=== PATIENT | female | born 1975 | race Caucasian/White ===

== ENCOUNTER 2024-10-08 21:32 | Day surgery (SDC) | payer BC ==
[2024-10-08 21:47] VITALS: O2SAT 99
--- NOTE | 2024-10-08 21:57 | ERPHSYRPT ---
- History of Present Illness Source: patient Exam Limitations: no limitations Patient Subjective Stated Complaint: c/o food obstruction Triage Nursing Assessment: patient rbought to ED with c/o food obstruction in esophagus. States that she ate some steak arounf 1630 and cannot get it to come up or down. Patient states it has happened before but not this bad. Patient tried to drink some coke earlier but it didn't subside. Patient rates pain 3/10, states she has nausea and vomiting but the food won't come up. hypertensive, skin w/n/d, gait stead, afebrile. Physician History: Patient was eating a steak at around 430 or 5 PM. It got stuck. This has happened once before but it passed after a few hours. She waited about 4-1/2 or 5 hours decided to come in. She is unable to swallow. She has some pain and she points to her midsternal area. She says it is tight and feels like something stuck in there. She is having difficulty clearing her secretions. Timing/Duration: today Severity: moderate Allergies/Adverse Reactions: acetaminophen [From Darvocet-N] Adverse Reaction (Verified 10/08/24 21:37) Itching Opioids - Morphine Analogues Adverse Reaction (Verified 10/08/24 21:37) Itching propoxyphene [From Darvocet-N] Adverse Reaction (Verified 10/08/24 21:37) Itching Home Medications: No Reportable Medications [No Reported Medications] 03/20/23 [History] Hx Tetanus, Diphtheria Vaccination/Date Given: Yes Hx Influenza Vaccination/Date Given: No Hx Pneumococcal Vaccination/Date Given: No Travel Risk - International Travel Have you traveled outside of the country in past 3 weeks: No - Emerging Infectious Disease Are you exhibiting symptoms associated with any current EIDs: No - Review of Systems Constitutional: No Symptoms Eyes: No Symptoms Ears, Nose, & Throat: No Symptoms Cardiac: No Symptoms Abdominal/Gastrointestinal: No Symptoms Skin: No Symptoms Neurological: No Symptoms - Past Medical History Pertinent Past Medical History: Yes Other Medical History: kidney stones, gallstones - Past Surgical History Past Surgical History: Yes Neuro Surgical History: No Pertinent History Cardiac: No Pertinent History Respiratory: No Pertinent History Gastrointestinal: Cholecystectomy Genitourinary: No Pertinent History Musculoskeletal: No Pertinent History Female Surgical History: Tubal Ligation Other Surgical History: ablation Significant Family History: no pertinent family hx - Female History Hx Last Menstrual Period: ablation around 18 years ago Hx Now: No - Social History Smoking Status: Never smoker Exposure to second hand smoke: No Drug Use: none - Social Determinants of Health Will the patient participate in the screening: Declined to provide - Nursing Vital Signs Nursing Vital Signs: Initial Vital Signs Temperature 98.7 F 10/08/24 21:38 Pulse Rate 96 H 10/08/24 21:38 Respiratory Rate 22 10/08/24 21:38 Blood Pressure 170/107 10/08/24 21:38 O2 Sat by Pulse Oximetry 99 10/08/24 21:38 Pain Scale Pain Intensity 3 - Physical Exam General Appearance: no apparent distress Eye Exam: PERRL/EOMI Ears, Nose, Throat Exam: normal ENT inspection Neck Exam: normal inspection Respiratory Exam: normal breath sounds Cardiovascular Exam: regular rate/rhythm Gastrointestinal/Abdomen Exam: soft, normal bowel sounds SpO2: 99 - Course Nursing assessment & vital signs reviewed: Yes Ordered Tests: Medication Summary Discontinued Medications Generic Name Dose Route Start Last Admin Trade Name Martha PRN Reason Stop Dose Admin Glucagon 1 mg 10/08/24 21:55 10/08/24 22:09 Glucagon 1 Mg/Vial Vial IM 10/08/24 21:56 1 mg STAT ONE Administration Glucagon Confirm 10/08/24 22:01 Glucagon 1 Mg/Vial Vial Administered 10/08/24 22:02 Dose 1 mg .ROUTE .STK-MED ONE Lorazepam 2 mg 10/08/24 21:55 10/08/24 22:03 Lorazepam 2 Mg/1 Ml 2 Mg Vial IM 10/08/24 21:56 2 mg STAT ONE Administration Lorazepam Confirm 10/08/24 22:00 Lorazepam 2 Mg/1 Ml 2 Mg Vial Administered 10/08/24 22:01 Dose 2 mg .ROUTE .STK-MED ONE Sterile Water Confirm 10/08/24 22:01 Water For Injection,Sterile 10 Ml Vial Administered 10/08/24 22:02 Dose 10 ml IJ .STK-MED ONE - Progress Progress: unchanged Progress Note: I spoke with Dr. Rj Zurita. He agreed to come in and remove the bolus. 10/08/24 22:15 - Departure Departure Disposition: Home Clinical Impression: Esophageal foreign body Condition: Stable Critical Care Time: No Referrals: FRITCH,SHANTELLE, CIGARETTE TIPPER [Primary Care Provider] - Follow up/PCP as directed
[2024-10-08] MEDS ORDERED: Ativan 2 MG/1 ML VIAL ONE (22:00)
[2024-10-08] MEDS ORDERED: GlucaGen 1 MG ONE (22:01)
[2024-10-08] MEDS ORDERED: Sterile H2O 10 ml IJ ONE (22:01)
[2024-10-08] MEDS: Ativan 2 MG/1 ML VIAL IM ONE (22:03)
[2024-10-08] MEDS: GlucaGen 1 MG IM ONE (22:09)
[2024-10-08 22:28] VITALS: TEMP 99.3
[2024-10-08 23:03] VITALS: BP 146/82; PULSE 84; RESP 19
--- NOTE | 2024-10-08 23:03 | PCM.HP ---
History of Present Illness - Chief Complaint History of Present Illness: 49yo has had multiple prior episodes that always resolved on its own. eating steak. cannot get it to go down. "- History of Present Illness Source: patient Exam Limitations: no limitations Patient Subjective Stated Complaint: c/o food obstruction Triage Nursing Assessment: patient rbought to ED with c/o food obstruction in esophagus. States that she ate some steak arounf 1630 and cannot get it to come up or down. Patient states it has happened before but not this bad. Patient tried to drink some coke earlier but it didn't subside. Patient rates pain /, states she has nausea and vomiting but the food won't come up. hypertensive, skin w/n/d, gait stead, afebrile. Physician History: Patient was eating a steak at around 430 or 5 PM. It got stuck. This has happened once before but it passed after a few hours. She waited about 4-1/2 or 5 hours decided to come in. She is unable to swallow. She has some pain and she points to her midsternal area. She says it is tight and feels like something stuck in there. She is having difficulty clearing her secretions. Timing/Duration: today Severity: moderate Allergies/Adverse Reactions: acetaminophen [From Darvocet-N] Adverse Reaction (Verified 10/08/24 21:37) Itching Opioids - Morphine Analogues Adverse Reaction (Verified 10/08/24 21:37) Itching propoxyphene [From Darvocet-N] Adverse Reaction (Verified 10/08/24 21:37) Itching Home Medications: No Reportable Medications [No Reported Medications] 03/20/23 [History] Hx Tetanus, Diphtheria Vaccination/Date Given: Yes Hx Influenza Vaccination/Date Given: No Hx Pneumococcal Vaccination/Date Given: No Travel Risk - International Travel Have you traveled outside of the country in past 3 weeks: No - Emerging Infectious Disease Are you exhibiting symptoms associated with any current EIDs: No - Review of Systems Constitutional: No Symptoms Eyes: No Symptoms Ears, Nose, & Throat: No Symptoms Cardiac: No Symptoms Abdominal/Gastrointestinal: No Symptoms Skin: No Symptoms Neurological: No Symptoms - Past Medical History Pertinent Past Medical History: Yes Other Medical History: kidney stones, gallstones - Past Surgical History Past Surgical History: Yes Neuro Surgical History: No Pertinent History Cardiac: No Pertinent History Respiratory: No Pertinent History Gastrointestinal: Cholecystectomy Genitourinary: No Pertinent History Musculoskeletal: No Pertinent History Female Surgical History: Tubal Ligation Other Surgical History: ablation Significant Family History: no pertinent family hx - Female History Hx Last Menstrual Period: ablation around 18 years ago Hx Now: No - Social History Smoking Status: Never smoker Exposure to second hand smoke: No Drug Use: none - Social Determinants of Health Will the patient participate in the screening: Declined to provide" Medications & Allergies Home Medications: Home Medication List No Reportable Medications [No Reported Medications] 03/20/23 [History Confirmed 10/08/24] Allergies/Adverse Reactions: Allergies Allergy/AdvReac Type Severity Reaction Status Date / Time acetaminophen AdvReac Itching Verified 10/08/24 21:37 [From Darvocet-N] Opioids - Morphine Analogues AdvReac Itching Verified 10/08/24 21:37 propoxyphene AdvReac Itching Verified 10/08/24 21:37 [From Darvocet-N] - Past Medical History Past Medical History: Yes Comment: kidney stones, gallstones - Female History Hx Last Menstrual Period: ablation around 18 years ago Are you now?: No - Past Surgical History Past Surgical History: Yes Neuro Surgical History: No Pertinent History Cardiac History: No Pertinent History Respiratory Surgery: No Pertinent History GI Surgical History: Cholecystectomy Genitourinary Surgical Hx: No Pertinent History Musculskeletal Surgical Hx: No Pertinent History Female Surgical History: Tubal Ligation Other Surgical History: ablation Significant Family History: no pertinent family hx - Social History Smoking Status: Never smoker Exposure to second hand smoke: No Alcohol: Rarely Drug Use: none - Social Determinants of Health Will the patient participate in the screening: Declined to provide - Physical Exam Vital Signs: Vital Signs - 24 hr Temp Pulse Resp BP BP Pulse Ox 10/08/24 22:39 99 10/08/24 22:19 99.3 F 78 16 141/98 99 10/08/24 22:01 85 20 141/98 99 10/08/24 21:38 98.7 F 96 H 22 170/107 170/107 78 L Additional Findings: 10/08/24 23:02 nad no scleral icterus neck symmetric nonlabored resps rrr nd, soft, nttp no edema Assessment/Plan (1) Esophageal foreign body Current Visit: Yes Status: Acute Assessment & Plan: esophagel food bolus obstruction not able to handle secretions. -egd with removal. Code(s): T18.108A - UNSP FOREIGN BODY IN ESOPHAGUS CAUSING OTH INJURY, INIT
[2024-10-08] MEDS ORDERED: SUBLIMAZE 100 MCG/2 ML ONE (23:11)
[2024-10-08] MEDS ORDERED: Zofran 4 MG/2 ML VIAL ONE (23:12)
[2024-10-08] MEDS ORDERED: propofoL IV ONE (23:12)
[2024-10-08] MEDS ORDERED: Quelicin Fliptop 200 MG/10 ML ONE (23:12)
[2024-10-08] MEDS ORDERED: Xylocaine-Mpf 2% 5 Ml Vial ONE (23:12)
[2024-10-08] MEDS ORDERED: Lactated Ringers 1,000 ML IV ONE (23:24)
[2024-10-08] MEDS ORDERED: BREVIBLOC 100 MG/10 ML IV ONE (23:31)
--- NOTE | 2024-10-11 08:02 | OP ---
SURGERY DATE/TIME: 10/08/2024 [id number] PREOPERATIVE DIAGNOSIS: Esophageal food bolus obstruction. POSTOPERATIVE DIAGNOSIS: Esophageal food bolus obstruction. PROCEDURE PERFORMED: Esophagogastroduodenoscopy with removal of esophageal food bolus. SURGEON: Chuck Zurita MD ANESTHESIA: General. ESTIMATED BLOOD LOSS: Minimal. PATIENT CONDITION: Stable. COMPLICATIONS: None. SPECIMENS: None. INDICATIONS: The patient is a 49-year-old female that has had previous food bolus that never required an EGD, it always passed on its own. She is not taking any PPI. She has had a colonoscopy before. Discussion was had with the patient. She elected to proceed. FINDINGS: A piece of meat at the distal esophagus pushed through easily. Moderate esophagitis just at that area in the distal esophagus. DESCRIPTION OF PROCEDURE: Patient brought to the operating room, routinely positioned and prepared. General endotracheal anesthesia by Anesthesia. The time-out performed. Gastroscope was then inserted, advanced to the distal esophagus where there was a meat food bolus encountered, which was easily pushed through without any significant resistance. The stomach was then suctioned out. There were some just fundic gland-appearing polyps in the stomach and there was a distal esophagitis just at the area where the meat bolus was. No significant gastritis. Duodenum was normal. The stomach was suctioned out. The scope was withdrawn. RECOMMENDATIONS: Daily PPI. Follow up in the office in 2 to 4 weeks. Could consider repeat EGD, possible dilation.
== END 2024-10-09 00:20 | disposition home or self-care (01) ==
LOC: SDC 21:32 → ED 10-09 00:20 → SDC 10-09 00:20
PROVIDERS: ATTEND Surgery
DX: T18.128A Food in esophagus causing other injury, initial encounter (principal)
CPT/HCPCS: 96372; 99140; 99283; 99284; J0330; J1610; J2060; J2405; J2704; J3010

== ENCOUNTER 2025-04-28 20:23 | Emergency (ER) | payer BC ==
[2025-04-28 20:37] VITALS: TEMP 97.4
[2025-04-28] MEDS ORDERED: GlucaGen 1 MG ONE (20:47)
[2025-04-28] MEDS ORDERED: VERSED 5 MG/5 ML ONE (20:47)
--- NOTE | 2025-04-28 20:48 | ERPHSYRPT ---
- History of Present Illness Patient Subjective Stated Complaint: pt states that she has roast stuck in her throat Triage Nursing Assessment: pt ambulated into the er; pt is axo x4; c/o foreign body; pt denies pain; c/o N/V; clear lung sounds in all lobes; no upper airway obstruction present; no respiratory distress present, pt is speaking in full sentences; skin PDW; hypertensive Physician History: Food bolus in esophagus, patient apparently had steak for dinner and feels like food is caught in her esophagus, this happened previously in September of this year and she required to have endoscopy to have the fluid removed, she states that she has had several episodes in the past, She has only had the 1 endoscopy and when they remove the food bolus they stated there was no scarring at that time and the food bolus was pushed through without difficulty Timing/Duration: hour(s) (2) Severity: moderate Associated Symptoms: vomiting Allergies/Adverse Reactions: acetaminophen [From Darvocet-N] Adverse Reaction (Verified 04/28/25 20:31) Itching Opioids - Morphine Analogues Adverse Reaction (Verified 04/28/25 20:31) Itching propoxyphene [From Darvocet-N] Adverse Reaction (Verified 04/28/25 20:31) Itching Home Medications: No Reportable Medications [No Reported Medications] 03/20/23 [History] Hx Tetanus, Diphtheria Vaccination/Date Given: Yes Hx Influenza Vaccination/Date Given: No Hx Pneumococcal Vaccination/Date Given: No Travel Risk - International Travel Have you traveled outside of the country in past 3 weeks: No - Emerging Infectious Disease Are you exhibiting symptoms associated with any current EIDs: No - Past Medical History Pertinent Past Medical History: Yes Other Medical History: kidney stones, gallstones - Past Surgical History Past Surgical History: Yes Neuro Surgical History: No Pertinent History Cardiac: No Pertinent History Respiratory: No Pertinent History Gastrointestinal: Cholecystectomy Genitourinary: No Pertinent History Musculoskeletal: No Pertinent History Female Surgical History: Tubal Ligation Other Surgical History: ablation Significant Family History: no pertinent family hx - Female History Hx Last Menstrual Period: ablation around 18 years ago Hx Now: No - Social History Smoking Status: Never smoker Exposure to second hand smoke: No Drug Use: none - Social Determinants of Health Will the patient participate in the screening: Declined to provide - Nursing Vital Signs Nursing Vital Signs: Initial Vital Signs Pulse Rate 86 04/28/25 20:30 Respiratory Rate 17 04/28/25 20:30 Blood Pressure 158/94 04/28/25 20:30 O2 Sat by Pulse Oximetry 99 04/28/25 20:30 Pain Scale Pain Intensity 0 - Physical Exam General Appearance: no apparent distress, alert Eye Exam: PERRL/EOMI, eyes nml inspection Ears, Nose, Throat Exam: normal ENT inspection, TMs normal, pharynx normal, moist mucous membranes Neck Exam: normal inspection, non-tender, supple, full range of motion Respiratory Exam: normal breath sounds, lungs clear, No respiratory distress Cardiovascular Exam: regular rate/rhythm, normal heart sounds, normal peripheral pulses Gastrointestinal/Abdomen Exam: soft, normal bowel sounds, No tenderness, No mass Back Exam: normal inspection, normal range of motion, No CVA tenderness, No vertebral tenderness Extremity Exam: normal inspection, normal range of motion, pelvis stable Neurologic Exam: alert, oriented x 3, cooperative, normal mood/affect, nml cerebellar function, nml station & gait, sensation nml, No motor deficits Skin Exam: normal color, warm, dry, No rash Lymphatic Exam: No adenopathy SpO2 Interpretation: normal SpO2: 98 Ordered Tests: Active Orders 24 hr Category Date Time Status IV Insertion STAT Care 04/28/25 20:38 Active BMP Stat Lab 04/28/25 20:45 Completed CBC W DIFF Stat Lab 04/28/25 20:45 Completed Medication Summary Discontinued Medications Generic Name Dose Route Start Last Admin Trade Name Martha PRN Reason Stop Dose Admin Glucagon 2 mg 04/28/25 20:40 04/28/25 20:49 Glucagon 1 Mg/Vial Vial IV 04/28/25 20:41 2 mg STAT ONE Administration Glucagon Confirm 04/28/25 20:47 Glucagon 1 Mg/Vial Vial Administered 04/28/25 20:48 Dose 1 mg .ROUTE .STK-MED ONE Midazolam HCl 2 mg 04/28/25 20:41 04/28/25 20:49 Midazolam Hcl 2 Mg/2 Ml Vial IV 04/28/25 20:42 Not Given 1XONLY ONE Midazolam HCl 2 mg 04/28/25 20:48 04/28/25 20:49 Midazolam Hcl 5 Mg/5 Ml Vial IV 04/28/25 20:49 2 mg STAT STA Administration Midazolam HCl Confirm 04/28/25 20:47 Midazolam Hcl 5 Mg/5 Ml Vial Administered 04/28/25 20:48 Dose 5 mg .ROUTE .K-MED ONE Lab/Rad Data: Laboratory Result Diagrams 04/28/25 20:45 04/28/25 20:45 Laboratory Results 04/28/25 04/28/25 Range/Units 20:45 20:45 WBC 8.2 (3.98-10.04) x10^3/uL RBC 4.24 (3.93-5.22) x10^6/uL Hgb 12.3 (11.2-15.7) g/dL Hct 37.2 (34.1-44.9) % MCV 87.7 (79.4-94.8) fL MCH 29.0 (25.6-32.2) pg MCHC 33.1 (32.2-35.5) g/dL RDW 12.2 (11.7-14.4) % Plt Count 272 (182-369) x10^3/uL MPV 10.1 (9.4-12.3) fL Gran % 54.2 (34.0-71.1) % Immature Gran % (Auto) 0.2 (0.001-0.429) % Nucleat RBC Rel Count 0.0 (0.00-0.2) % Eos # (Auto) 0.36 (0.04-0.36) x10^3/uL Immature Gran # (Auto) 0.02 (0.001-0.031) x10^3u/L Absolute Lymphs (auto) 2.58 (1.18-3.74) x10^3/uL Absolute Monos (auto) 0.74 (0.24-0.86) x10^3/uL Absolute Nucleated RBC 0.00 (0.00-0.012) x10^3u/L Lymphocytes % 31.5 (19.3-51.7) % Monocytes % 9.0 (4.7-12.5) % Eosinophils % 4.4 (0.7-5.8) % Basophils % 0.7 (0.1-1.2) % Absolute Granulocytes 4.44 (1.56-6.13) x10^3/uL Basophils # 0.06 (0.01-0.08) x10^3/uL Sodium 139 (135-145) mmol/L Potassium 3.8 (3.5-5.1) mmol/L Chloride 106 (98-107) mmol/L Carbon Dioxide 26 (22-30) mmol/L Anion Gap 11.1 (5-15) MEQ/L BUN 17 (7-17) mg/dL Creatinine 0.83 (0.52-1.04) mg/dL Estimated GFR 87.5 ML/MIN Glucose 101 (74-106) mg/dL Calcium 9.0 (8.4-10.2) mg/dL - Progress Progress Note: 04/28/25 22:38 Somewhat improved after receiving glucagon and Versed, she is given a trial of clear liquids which she tolerated but still feels like the food is stuck, consult general surgery but they are unavailable as another patient is going to the OR and they recommended the patient be transferred, At this time likely transfer location is [facility] 04/28/25 23:30 discussed with GI/Hospitalist transfer pending availability of OR and staff 04/28/25 23:[address] Rubi(hospitalist), Dr Abarca(GI) - Departure Departure Disposition: Transfer Clinical Impression: Food bolus obstruction of intestine Condition: Stable Critical Care Time: No Referrals: ELOINA WILKINS BLANKET FOLDER [Primary Care Provider, UNKNOWN] - Follow up/PCP as directed
[2025-04-28] MEDS: VERSED 5 MG/5 ML IV STA (20:49)
[2025-04-28] MEDS: GlucaGen 1 MG IV ONE (20:49)
[2025-04-28] MEDS: Versed 2 MG/2 ML Injection IV ONE (20:49)
[2025-04-28 20:51] LABS: BASOPHIL % 0.7 % (0.1-1.2); Basophil (Absolute #) 0.06 x10^3/uL (0.01-0.08); Eosinophil (Absolute #) 0.36 x10^3/uL (0.04-0.36); Hematocrit 37.2 % (34.1-44.9); Hemoglobin 12.3 g/dL (11.2-15.7); IMMATURE GRAN # 0.02 x10^3u/L (0.001-0.031); IMMATURE GRAN % 0.2 % (0.001-0.429); Lymphocyte (Absolute #) 2.58 x10^3/uL (1.18-3.74); Mean Corpuscular Hemoglobin 29.0 pg (25.6-32.2); Mean Corpuscular Hgb Concent. 33.1 g/dL (32.2-35.5); Monocyte (Absolute #) 0.74 x10^3/uL (0.24-0.86); NUCLEATED RBC # 0.00 x10^3u/L (0.00-0.012); NUCLEATED RBC % 0.0 % (0.00-0.2); Platelet Count 272 x10^3/uL (182-369); Red Blood Count 4.24 x10^6/uL (3.93-5.22); White Blood Count 8.2 x10^3/uL (3.98-10.04)
[2025-04-28 21:05] LABS: Calcium 9.0 mg/dL (8.4-10.2); Carbon Dioxide 26.0 mmol/L (22-30); Creatinine 1 0.83 mg/dL (0.52-1.04); EST GLOMERULAR FILTRATION RATE 87.5 ML/MIN; Glucose 101.0 mg/dL (74-106); Potassium 3.8 mmol/L (3.5-5.1)
[2025-04-29] MEDS ORDERED: TORAdol 30 mg Injection ONE (00:11)
[2025-04-29] MEDS: TORAdol 30 mg Injection IV ONE (00:12)
[2025-04-29 01:04] VITALS: BP 121/80; PULSE 76; RESP 17; O2SAT 95
== END 2025-04-29 01:25 | disposition short-term general hospital (02) ==
LOC: ED 20:23
DX: T18.128A Food in esophagus causing other injury, initial encounter (principal); W44.F3XA Food entering into or through a natural orifice, initial encounter